=== PATIENT | male | born 1955 | race Caucasian/White ===

== ENCOUNTER 2021-06-05 12:36 | Outpatient (RCR) | payer BC, SELFPAY | END 2021-07-05 15:07 | disposition home or self-care (01) | LOC: HO.WCC 12:36 | PROVIDERS: PCP Internal Medicine; Referring Provider Internal Medicine; Visit Provider Physician Assistant | DX: I83.223 Varicose veins of left lower extremity with both ulcer of ankle and inflammation (principal); I87.032 Postthrombotic syndrome with ulcer and inflammation of left lower extremity; L97.322 Non-pressure chronic ulcer of left ankle with fat layer exposed; I83.91 Asymptomatic varicose veins of right lower extremity; U09.9 Post COVID-19 condition, unspecified; Z86.718 Personal history of other venous thrombosis and embolism; Z86.711 Personal history of pulmonary embolism | CPT/HCPCS: 11042; 99212 ==

== ENCOUNTER 2022-01-23 08:00 | Outpatient (RCR) | payer BC, SELFPAY | END 2022-01-26 08:51 | disposition home or self-care (01) | LOC: HO.WCC 08:00 | PROVIDERS: PCP Internal Medicine; Visit Provider Physician Assistant | DX: I87.022 Postthrombotic syndrome with inflammation of left lower extremity (principal); I87.2 Venous insufficiency (chronic) (peripheral); I10 Essential (primary) hypertension; Z86.718 Personal history of other venous thrombosis and embolism; Z86.711 Personal history of pulmonary embolism | CPT/HCPCS: 99212 ==